=== PATIENT | male | born 1955 | race Caucasian/White ===

== ENCOUNTER 2020-11-17 09:59 | Emergency (ER) | payer MEDICARE, OTHER ==
[2020-11-17 13:31] LABS: BASOPHIL 0.8 % (0-2); BILIRUBIN NEGATIVE (NEGATIVE); BLOOD 2+ Ery/uL (NEGATIVE); CLARITY CLEAR (CLEAR); COLOR YELLOW (YELLOW); EOSINOPHIL 4.2 % (0-7); GLUCOSE (U) NORMAL (NORMAL); HCT 47.1 % (42.0-52.0); HGB 14.3 g/dl (13.2-18.0); LEUKOCYTES NEGATIVE Leu/uL (NEGATIVE); LYMPHOCYTE 27.4 % (15-48); MCH 27.7 pg (25.0-31.0); MCHC 30.4 g/dL (32.0-36.0); MCV 91.3 fL (78.0-100.0); MONOCYTE 6.4 % (0-12); MPV 10.5 fL (6.0-9.5); NEUTROPHIL 60.8 % (41-80); NITRITE NEGATIVE (NEGATIVE); NRBC 0; PLT 235 K/uL (150-400); PROTEIN NEGATIVE (NEGATIVE); RBC 5.16 M/uL (4.70-6.00); RDW 14.1 % (11.5-14.0); UROBILINOGEN 0.2 mg/dL (0.2-1.0); WBC 7.2 K/uL (4.0-10.5); pH 5.5 (5.0-9.0)
[2020-11-17 13:37] LABS: SQUAMOUS EPITHELIAL CELLS RARE; URINARY WBC RARE
[2020-11-17 13:38] LABS: MUCOUS TRACE
[2020-11-17 13:54] LABS: BILIRUBIN - TOTAL 0.6 mg/dL (0.2-1.0); CREATININE 0.74 mg/dL (0.67-1.17); GLOBULIN (CALCULATION) 3.7 g/dL; POTASSIUM 4.2 mmol/L (3.5-5.1); TOTAL PROTEIN 7.7 g/dL (6.4-8.2)
[2020-11-17] MEDS ORDERED: SENNA-S 8.6-501 EACH PO (14:19)
[2020-11-17] MEDS ORDERED: VITAMIN D31250 MCG PO (14:19)
[2020-11-17] MEDS ORDERED: CALCIUM + D3 E1 EACH PO (14:19)
[2020-11-17] MEDS ORDERED: FLOMAX0.4 MG PO (14:19)
[2020-11-17] MEDS ORDERED: CALCITONIN-SAL3.7 ML (14:19)
[2020-11-17] MEDS ORDERED: NORCO 5-325 TA1 EACH PO (14:19)
== END 2020-11-17 16:05 | disposition home or self-care (01) ==
LOC: FER 09:59
PROVIDERS: Internal Medicine
DX: S22.068A Other fracture of T7-T8 thoracic vertebra, initial encounter for closed fracture (principal); N40.0 Benign prostatic hyperplasia without lower urinary tract symptoms; K59.00 Constipation, unspecified; K76.9 Liver disease, unspecified; X58.XXXA Exposure to other specified factors, initial encounter; Y92.009 Unspecified place in unspecified non-institutional (private) residence as the place of occurrence of the external cause
CPT/HCPCS: 36415; 72128; 72131; 80053; 81001; 85025; J2930